=== PATIENT | female | born 1945 | race Caucasian/White ===

== ENCOUNTER → 2017-12-15 15:31 | Outpatient (CLI) | payer MEDICARE, SELFPAY ==
--- NOTE | 2017-12-15 | DI.RAD.S_ITS ---
PROCEDURE: XR CHEST 2V INDICATIONS: ACUTE BRONCHITIS TECHNIQUE: 2 views of the chest were acquired. COMPARISON: None. FINDINGS: Surgical changes and devices: None. Lungs and pleura: No pleural effusions or pneumothorax. Lungs are abnormal, with asymmetric subtle generalized increased radiodensity over the left lung best seen at the left upper lobe. Mediastinum: Mediastinal contours are normal. Heart size is normal. Bones and chest wall: No suspicious bony abnormalities. Soft tissues appear unremarkable. IMPRESSION: Suspect left lung pneumonia, especially left upper lobe area. Followup PA and lateral chest plain film should be obtained in approximately 2 weeks to confirm resolution of this abnormality. Dictated by: John Ravi M.D. on 12/15/2017 at 16:15 Approved by: John Ravi M.D. on 12/15/2017 at 16:16
== END ==
PROVIDERS: PCP Physician Assistant; Visit Provider Student in an Organized Health Care Education/Training Program
DX: J20.9 Acute bronchitis, unspecified (principal)
CPT/HCPCS: 71046

== ENCOUNTER → 2017-12-29 14:04 | Outpatient (CLI) | payer MEDICARE, SELFPAY ==
--- NOTE | 2017-12-29 | DI.RAD.S_ITS ---
PROCEDURE: XR CHEST 2V INDICATIONS: Pneumonia, unspecified organism TECHNIQUE: 2 views of the chest were acquired. COMPARISON: [facility], CR, XR CHEST 2V, 12/15/2017, 15:36. FINDINGS: Surgical changes and devices: None. Lungs and pleura: No pleural effusions or pneumothorax. Lungs are clear. Mediastinum: Mediastinal contours are normal. Heart size is normal. Bones and chest wall: No suspicious bony abnormalities. Soft tissues appear unremarkable. IMPRESSION: No acute disease Dictated by: Doug Gonsalez M.D. on 12/29/2017 at 15:52 Approved by: Doug Gonsalez M.D. on 12/29/2017 at 16:01
== END ==
PROVIDERS: PCP Physician Assistant; Visit Provider Student in an Organized Health Care Education/Training Program
DX: J18.9 Pneumonia, unspecified organism (principal)
CPT/HCPCS: 71046

== ENCOUNTER → 2018-07-24 11:37 | Outpatient (CLI) | payer MEDICARE, SELFPAY ==
--- NOTE | 2018-07-24 | DI.CT.S_ITS ---
PROCEDURE: CT SOFT TISSUE NECK WO/W CON INDICATIONS: BILATERAL VOCAL CORD PARALYSIS TECHNIQUE: Before and after the administration of intravenous contrast, 2.0 mm axial sections acquired through the neck and down to the roque. Additional 2.0 mm coronal and sagittal reformats were generated of the contrast enhanced images. For radiation dose reduction, the following was used: automated exposure control. COMPARISON: [facility], CR, XR CHEST 2V, 12/15/2017, 15:36. [facility], CR, XR CHEST 2V, 12/29/2017, 14:06. FINDINGS: Image quality: Excellent. Lung parenchyma: There is a mass lesion at the anterior left upper lobe, measuring up to 2.4 cm AP and 3.3 cm transverse with a craniocaudad dimension of 5.7 cm. This mass extends to abut and likely invade the adjacent left mediastinum, and there is mild increased radiodensity tracking towards the midline through the AP window best seen on coronal imaging (series 8 image 54). There is a small amount pleural thickening at the posterior border of the left upper hemithorax, with a re\re internal radiodensity about 26 Hounsfield units. Thyroid: Right thyroid lobe appears surgically absent. There is a mass within the posterior half of the left thyroid lobe measuring 1.7 cm transverse and 2.1 cm AP. Lymph nodes: No enlarged lymph nodes seen throughout the neck. Vessels: Visualized vasculature appears patent. Neck spaces: The oropharynx, nasopharynx, and pharynx demonstrate no mucosal lesions. The vocal cords, false vocal cords, pyriform sinuses, epiglottis, vallecula, and tongue base all appear normal. Extramucosal spaces appear unremarkable. Glands: The parotid and submandibular glands appear normal. Miscellaneous: Superficial soft tissues appear normal. Bones: No suspicious bony lesions. Visualized sinuses and mastoids appear unremarkable. IMPRESSION: 1. 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 As noted above this mass extends to abut and likely invade the left mediastinum and may track across the midline given the presence of bands of elevated radiodensity contiguously extending from the inferior margin of the mass at the left mediastinal margin within the middle mediastinal fat. 2. Surgical clips indicate likelihood of prior right thyroidectomy. 3. Angular mass lesion at the posterior left thyroid lobe measuring up to 1.7 x 2.1 cm, heterogeneously enhancing. Thyroid ultrasound is recommended to further assess this abnormality. Biopsy likely is necessary targeted to that area. 4. Within the glottic region of the upper airway a discrete mucosal mass lesion is not found. Dictated by: John Ravi M.D. on 07/24/2018 at 14:50 Approved by: John Ravi M.D. on 07/24/2018 at 15:01
== END ==
PROVIDERS: Family Provider Internal Medicine Cardiovascular Disease; PCP Student in an Organized Health Care Education/Training Program; Visit Provider Otolaryngology
DX: J38.02 Paralysis of vocal cords and larynx, bilateral (principal); R91.8 Other nonspecific abnormal finding of lung field; E07.9 Disorder of thyroid, unspecified
CPT/HCPCS: 70492; Q9967

== ENCOUNTER → 2018-08-03 15:08 | Outpatient (CLI) | payer MEDICARE, SELFPAY ==
--- NOTE | 2018-08-03 | DI.US.S_ITS ---
PROCEDURE: US THYROID INDICATIONS: OTHER SPECIFIED DISORDERS OF THYROID TECHNIQUE: Real-time scanning was performed of the thyroid gland, with image documentation. COMPARISON: None. FINDINGS: Right: Thyroid lobe is surgically absent Left: Thyroid lobe measures 4.4 x 1.3 x 1.6 cm, and contains 3 nodules Nodule number: 1 Location: Left lower pole Size: 1.8 x 2.0 x 2.0 cm. Composition: Predominantly solid Echogenicity: Hypoechoic Shape: wider than tall. Margins: Smooth Echogenic foci: Punctate Total points: 7 ACR TI-RADS category: Highly suspicious Nodule number: 2 Location: Left upper pole Size: 1.2 x 0.7 x 0.9 cm. Composition: Predominantly solid Echogenicity: Isoechoic Shape: wider than tall. Margins: Smooth Echogenic foci: None Total points: 3 ACR TI-RADS category: Mildly suspicious Nodule number: 3 Location: Medial left lower pole Size: 1.6 x 0.6 x 0.9 cm. Composition: Solid Echogenicity: Isoechoic Shape: Wider than tall Margins: Smooth Echogenic foci: None Total points: 3 ACR TI-RADS category: Mildly suspicious IMPRESSION: 1. Remote right hemithyroidectomy 2. There are 3 nodules in the left lobe of the thyroid. 3. Nodule 1, in the left lower pole, measuring 2.0 cm in maximum diameter, according to B TI-RADS criteria, should be sampled if it hasn't been sampled and proven to be benign. ACR TI-RADS definitions and recommendations: TI-RADS 1 (benign): 0 points. FNA not needed. TI-RADS 2 (not suspicious): 2 points. FNA not needed. TI-RADS 3 (mildly suspicious): 3 points. * FNA if 2.5 cm or larger, follow up if 1.5 cm or larger (at 1, 3, and 5 years). TI-RADS 4 (moderately suspicious): 4-6 points. * FNA if 1.5 cm or larger, follow up if 1 cm or larger (at 1, 2, 3, and 5 years). TI-RADS 5 (highly suspicious): 7 points or more. * FNA if 1 cm or larger, follow up if 0.5 cm or larger (every year for 5 years). Dictated by: Jamie Thomas M.D. on 08/03/2018 at 17:10 Approved by: Jamie Thomas M.D. on 08/03/2018 at 17:17
== END ==
PROVIDERS: Family Provider Internal Medicine Cardiovascular Disease; PCP Student in an Organized Health Care Education/Training Program; Visit Provider Student in an Organized Health Care Education/Training Program
DX: E04.2 Nontoxic multinodular goiter (principal)
CPT/HCPCS: 76536

== ENCOUNTER → 2019-01-09 14:55 | Outpatient (CLI) | payer MEDICARE, SELFPAY ==
--- NOTE | 2019-01-09 | DI.ECHO.S_ITS ---
[facility]---------+ [facility] +---------+ : : [address] : : : : [id number] : : : : Phone: [phone]+ Echocardiogram Report + + :Name: FRANKEI GUZMAN Study Date: 01/09/2019 Height: 67 in : :[facility] Exam Location: [facility] Weight: 242 lb: : Gender: Female BSA: 2.2 m2 : :: 1945 Age: 73 yrs : :Reason For Study: Atrial fibrillation : :Ordering Physician: Sarika Fisher : :Sami Performed By: Erin Page : + + Interpretation Summary 1) Mildly enlarged left ventricle with normal function (EF 55-60%). 2) Mildly enlarged right ventricle with low normal function. 3) Both atria are severely dilated. 4) No significant valvular abnormalities. 5) Small to moderate pericardial effusion, located mostly anteriorly. No echo/doppler evidence of tamponade. 6) Compared to the Echo done 07/13/2018, LVEF has improved from 45-50% to 55-60% on this study and pericardial effusion is worse on this study. Procedure: A two-dimensional transthoracic echocardiogram with color flow and Doppler was performed. The study quality was technically adequate. Comparison is made with the echocardiogram of 08/03/2018. The patient was in atrial fibrillation with heart rates between 77-106 bpm during the exam. Left Ventricle: The left ventricle is mildly dilated. There is normal left ventricular wall thickness. The ejection fraction is estimated to be 55-60%. Left ventricular systolic function is normal. There are no obvious focal wall motion abnormalities noted but poor endocardial definition reduces the sensitivity for the detection of such. Diastolic function could not be accurately assessed due to atrial fibrillation. Right Ventricle: The right ventricle is mildly dilated. Right ventricular systolic function is at the lower limits of normal. Atria: Both atria are severely dilated. There is no Doppler evidence for an interatrial shunt. Mitral Valve: The mitral valve leaflets appear mildly thickened, but open well. There is trace mitral regurgitation. Aortic Valve: The aortic valve is trileaflet. The aortic valve opens well. The aortic valve is slightly calcified. There is no aortic valve stenosis. No aortic regurgitation is present. Tricuspid Valve: The tricuspid valve is normal in structure and function. There is mild tricuspid regurgitation. The right ventricular systolic pressure is estimated to be at least 32 mmHg based on an estimated right atrial pressure of 3 mm Hg. Pulmonic Valve: The pulmonic valve is not well visualized. Great Vessels: The aortic root is normal size. The ascending aorta is mildly enlarged. The pulmonary artery is not well visualized, but is probably normal size. The IVC is of normal diameter and collapses greater than 50% with a sniff. This suggests a low right atrial pressure of 3 mm Hg. Pericardium/ Pleura There are no echocardiographic indications of cardiac tamponade. Small to moderate pericardial effusion, located mostly anteriorly. There is no pleural effusion. MMode/2D Measurements & Calculations LVIDd: 5.5 cm LVOT diam: 2.2 cm LVIDs: 4.2 cm Ao root diam: 3.5 cm FS: 23.2 % asc Aorta Diam: 3.6 cm IVSd: 0.52 cm LVPWd: 0.82 cm LV rucker. diameter/BSA (cm/m^2): 2.5 LV sys. diameter/BSA (cm/m^2): 1.9 LA A2 area: 32.6 cm2 RA long axis: 5.9 cm LA A4 area: 35.9 cm2 RA area: 29.1 cm2 LA length (vol): 6.4 cm RA vol: 122.4 ml LA vol: 155.2 ml RA : 55.8 ml/m2 LA vol index: 70.8 ml/m2 IVC diam: 2.0 cm RVD1 (basal): 4.7 cm TAPSE: 1.7 cm Doppler Measurements & Calculations Ao V2 max: 133.3 cm/sec LVOT Max Epi: 80.4 cm/sec Ao V2 mean: 85.9 cm/sec LV V1 max P.6 mmHg Ao max P.1 mmHg LV V1 VTI: 13.5 cm Ao mean P.4 mmHg CHRISTOPHER(I,D): 2.6 cm2 Ao V2 VTI: 19.9 cm CHRISTOPHER(V,D): 2.4 cm2 sev ratio: 0.68 CHRISTOPHER indexed to BSA (cm^2/m^2): 1.2 MV E max epi: 89.1 cm/sec TR max epi: 269.3 cm/sec MV P1/2t: 49.4 msec TR max P.0 mmHg PA V2 max: 64.8 cm/sec PA V2 mean: 46.6 cm/sec PA mean P.96 mmHg PA Accel Time: 0.10 sec MV P1/2t max epi: 89.3 cm/sec SV(LVOT): 52.7 ml MVA(P1/2t): 4.5 cm2 Reading Physician:05:41 PM
== END ==
PROVIDERS: Family Provider Internal Medicine Cardiovascular Disease; PCP Student in an Organized Health Care Education/Training Program; Visit Provider Internal Medicine Cardiovascular Disease
DX: I07.1 Rheumatic tricuspid insufficiency (principal); I48.19 Other persistent atrial fibrillation; I31.3 Pericardial effusion (noninflammatory); Z86.79 Personal history of other diseases of the circulatory system
CPT/HCPCS: 93306

== ENCOUNTER 2019-02-23 05:30 | Emergency (ER) | payer MEDICARE, SELFPAY ==
[2019-02-23] VITALS (15 sets, daily range): BP systolic 101–126; BP diastolic 67–94; PULSE 92–107; RESP 15–20; TEMP 36.7–36.9; O2SAT 95–100; BMI 34.3
--- NOTE | 2019-02-23 05:32 | DI.RAD.S_ITS ---
PROCEDURE: XR KNEE LT 3V INDICATIONS: Fall left knee pain TECHNIQUE: 3 views of the knee were acquired. COMPARISON: None. FINDINGS: Bones: Comminuted fracture of the distal femur noted. Fracture lucencies extend in the patellofemoral compartment of the knee joint. Soft tissues: No joint effusion. No suspicious soft tissue calcifications. IMPRESSION: Comminuted, displaced, intra-articular distal left femur fracture. Dictated by: Kendy Clemens MD, PhD on 02/23/2019 at 8:31 Approved by: Kendy Clemens MD, PhD on 02/23/2019 at 8:32
--- NOTE | 2019-02-23 05:37 | ED.GENADULT ---
HPI - General Adult <Herman Mckinney DO - Last Filed: 02/23/19 18:54> General Chief complaint: Fall Stated complaint: fall, left knee pain Time Seen by Provider: 02/23/19 05:32 Source: patient and EMS Mode of arrival: EMS Limitations: no limitations History of Present Illness HPI narrative: Patient is a 73-year-old female. Has a history of breast cancer. Is not currently undergoing chemotherapy. Also has a history of persistent AFib. Is on Eliquis. Here for evaluation of injuries that she sustained when she fell at home. States she was getting out of bed this morning when she got her leg caught around her clothes. Fell forward. Did hit her head. No loss of consciousness. Since then has had severe left knee pain. Has been nonambulatory since then. EMS was called. She did receive 50 micro g of fentanyl prior to arrival. Related Data Allergies Allergy/AdvReac Type Severity Reaction Status Date / Time No Known Drug Allergies Allergy Verified 02/23/19 06:56 Review of Systems <DO Gabriel Smart Last Filed: 02/23/19 18:54> Constitutional Constitutional: Denies fever(s) and Denies headache(s) ENT Ears, Nose, Mouth, and Throat: Denies headache(s) and Denies disequilibrium Cardiovascular Cardiovascular: Denies chest pain and Denies dyspnea Respiratory Respiratory: Denies dyspnea Gastrointestinal Gastrointestinal: Denies abdominal pain and Denies vomiting Musculoskeletal Musculoskeletal: Denies tingling Comments: Left knee pain Integumentary/Breasts Comments: Abrasion left side of face Neurologic Neurologic: Denies behavioral changes, Denies headache(s), Denies tingling, Denies paresthesias and Denies disequilibrium Psychiatric Psychiatric: Denies behavioral changes Hematologic/Lymphatic Comments: On Eliquis Patient History <DO Gabriel Smart Last Filed: 02/23/19 18:54> Medical History Atrial fibrillation (Acute) Fibromyalgia (Acute) Hypothyroid (Acute) Lung cancer (Acute) Social History Smoking Status: Former smoker Exam <DO Gabriel Smart Last Filed: 02/23/19 18:54> Initial Vital Signs Initial Vital Signs: Vital Signs Temperature 98.4 F 02/23/19 05:43 Pulse Rate 93 H 02/23/19 05:43 Respiratory Rate 16 02/23/19 05:43 Blood Pressure 120/67 02/23/19 05:43 Pulse Oximetry 98 02/23/19 05:43 Const General: cooperative Orientation: alert, awake and oriented x3 HENMT Head: normal to inspection and normocephalic Resp Effort & Inspection: normal respiratory effort Auscultation: clear to auscultation bilaterally Cardio Rate: regular rate Pulses: radial pulses present Back/Spine/Pelvis Cervical Spine: No collar present and No cervical spinal tenderness Skin Other: Patient with a 3 cm round area abrasion to the left cheek. No active bleeding Neuro General: alert, awake and oriented x3 Cognition: normal cognition Speech: speech normal Extrem Other: Patient with tenderness to palpation throughout the left knee. Palpable deformity felt around the knee. Psych Appearance: grossly normal and well kempt <Lakesha Donato DO - Last Filed: 02/23/19 18:16> Initial Vital Signs Initial Vital Signs: Vital Signs Temperature 98.4 F 02/23/19 05:43 Pulse Rate 93 H 02/23/19 05:43 Respiratory Rate 16 02/23/19 05:43 Blood Pressure 120/67 02/23/19 05:43 Pulse Oximetry 98 02/23/19 05:43 Scores <Herman Mckinney DO - Last Filed: 02/23/19 18:54> GCS Halma coma scale eye opening: Spontaneous Osei coma scale verbal response: Orientated Osei coma scale motor response: Obey commands Osei coma scale total score: 15 Nexus Score for C-Spine Focal Neurologic deficit present: No Midline spinal tenderness present: No Altered level of conciousness present: No Intoxication present: No Distracting Injury Present: No Nexus Criteria for C-spine: 0 Course <Herman Mckinney DO - Last Filed: 02/23/19 18:54> Orders Ordered: Discontinued Medications Hydromorphone HCl (Dilaudid) 1 mg IV NOW ONE Stop: 02/23/19 05:56 Last Admin: 02/23/19 06:06 Dose: 1 mg Documented by: CLAU Hydromorphone HCl (Dilaudid) 1 mg IV NOW ONE Stop: 02/23/19 07:45 Last Admin: 02/23/19 07:50 Dose: 1 mg Documented by: SHANKAR Hydromorphone HCl (Dilaudid) 0.5 mg IV NOW ONE Stop: 02/23/19 08:42 Last Admin: 02/23/19 09:25 Dose: 0.5 mg Documented by: SHANKAR Hydromorphone HCl (Dilaudid) 1 mg IV Q3H [facility] Last Admin: 02/23/19 17:40 Dose: 1 mg Documented by: Admin: 02/23/19 15:19 Dose: 1 mg Documented by: Admin: 02/23/19 12:17 Dose: 1 mg Documented by: SHANKAR Sodium Chloride (Normal Saline 0.9%) 1,000 mls @ 150 mls/hr IV CONT MARIANN Last Infusion: 02/23/19 17:45 Dose: 0 mls/hr Documented by: Admin: 02/23/19 13:32 Dose: 150 mls/hr Documented by: SHANKAR Ondansetron HCl (Zofran) 4 mg IV NOW ONE Stop: 02/23/19 06:31 Last Admin: 02/23/19 06:49 Dose: 4 mg Documented by: GEORGES Ondansetron HCl (Zofran) 4 mg IV NOW ONE Stop: 02/23/19 08:12 Last Admin: 02/23/19 08:14 Dose: 4 mg Documented by: SHANKAR Vital Signs Vital signs: Vital Signs - 8 hr 02/23/19 10:55 02/23/19 11:30 02/23/19 12:25 Temperature Pulse Rate 92 H 99 H 97 H Respiratory Rate 19 16 20 Blood Pressure [Left Arm] 115/79 101/83 106/79 Pulse Oximetry 99 98 97 02/23/19 14:33 02/23/19 15:00 02/23/19 15:55 Temperature Pulse Rate 97 H 101 H 101 H Respiratory Rate 20 16 18 Blood Pressure [Left Arm] 114/86 112/82 122/94 H Pulse Oximetry 100 99 99 02/23/19 16:37 02/23/19 17:05 02/23/19 17:18 Temperature 98.1 F Pulse Rate 100 H 99 H Respiratory Rate 18 16 Blood Pressure [Left Arm] 112/88 102/82 Pulse Oximetry 99 98 02/23/19 17:30 Temperature Pulse Rate 100 H Respiratory Rate 18 Blood Pressure [Left Arm] 112/88 Pulse Oximetry 97 <Lakesha Donato, DO - Last Filed: 02/23/19 18:16> Orders Ordered: Discontinued Medications Hydromorphone HCl (Dilaudid) 1 mg IV NOW ONE Stop: 02/23/19 05:56 Last Admin: 02/23/19 06:06 Dose: 1 mg Documented by: CLAU Hydromorphone HCl (Dilaudid) 1 mg IV NOW ONE Stop: 02/23/19 07:45 Last Admin: 02/23/19 07:50 Dose: 1 mg Documented by: SHANKAR Hydromorphone HCl (Dilaudid) 0.5 mg IV NOW ONE Stop: 02/23/19 08:42 Last Admin: 02/23/19 09:25 Dose: 0.5 mg Documented by: SHANKAR Hydromorphone HCl (Dilaudid) 1 mg IV Q3H [facility] Last Admin: 02/23/19 17:40 Dose: 1 mg Documented by: Admin: 02/23/19 15:19 Dose: 1 mg Documented by: Admin: 02/23/19 12:17 Dose: 1 mg Documented by: SHANKAR Sodium Chloride (Normal Saline 0.9%) 1,000 mls @ 150 mls/hr IV CONT [facility] Last Infusion: 02/23/19 17:45 Dose: 0 mls/hr Documented by: Admin: 02/23/19 13:32 Dose: 150 mls/hr Documented by: SHANKAR Ondansetron HCl (Zofran) 4 mg IV NOW ONE Stop: 02/23/19 06:31 Last Admin: 02/23/19 06:49 Dose: 4 mg Documented by: GEORGES Ondansetron HCl (Zofran) 4 mg IV NOW ONE Stop: 02/23/19 08:12 Last Admin: 02/23/19 08:14 Dose: 4 mg Documented by: SHANKAR Vital Signs Vital signs: Vital Signs - 8 hr 02/23/19 10:55 02/23/19 11:30 02/23/19 12:25 Temperature Pulse Rate 92 H 99 H 97 H Respiratory Rate 19 16 20 Blood Pressure [Left Arm] 115/79 101/83 106/79 Pulse Oximetry 99 98 97 02/23/19 14:33 02/23/19 15:00 02/23/19 15:55 Temperature Pulse Rate 97 H 101 H 101 H Respiratory Rate 20 16 18 Blood Pressure [Left Arm] 114/86 112/82 122/94 H Pulse Oximetry 100 99 99 02/23/19 16:37 02/23/19 17:05 02/23/19 17:18 Temperature 98.1 F Pulse Rate 100 H 99 H Respiratory Rate 18 16 Blood Pressure [Left Arm] 112/88 102/82 Pulse Oximetry 99 98 02/23/19 17:30 Temperature Pulse Rate 100 H Respiratory Rate 18 Blood Pressure [Left Arm] 112/88 Pulse Oximetry 97 Medical Decision Making <Herman Mckinney, DO - Last Filed: 02/23/19 18:54> Medical Records Medical records reviewed: Yes I reviewed the patient's medical records. Lab Data Lab results reviewed: Yes I reviewed the patient's lab results. Result diagrams: 02/23/19 06:03 02/23/19 06:03 Labs: Lab Results 02/23/19 02/23/19 02/23/19 Range/Units 06:03 06:03 06:40 WBC 8.5 (4.5-11.0) X10^3/uL RBC 3.30 L (4.0-5.2) X10^6/uL Hgb 11.3 L (12.0-16.0) g/dL Hct 31.7 L (36-46) % MCV 96.1 (80-100) fL MCH 34.3 H (26-34) PG MCHC 35.7 (30-36) % RDW 12.6 (11.6-14.8) % Plt Count 237 (150-400) X10^3/uL Neut % (Auto) 73.4 (50-75) % Lymph % (Auto) 17.8 L (25-40) % Davidson % (Auto) 7.7 (3-14) % Eos % (Auto) 0.3 L (2-4) % Baso % (Auto) 0.8 (0-2) % Neut # (Auto) 6300 (0962-5504) /uL Lymph # (Auto) 1500 (0649-8800) /uL Davidson # (Auto) 700 (0-900) /uL Eos # (Auto) 0 (0-450) /uL Baso # (Auto) 100 (0-100) /uL Sodium 137 (137-145) mmol/L Potassium 4.9 (3.4-5.1) mmol/L Chloride 101 (98-107) mmol/L Carbon Dioxide 25 (22-32) mmol/L BUN 43 H (7-17) mg/dL Creatinine 5.50 H (0.52-1.04) mg/dL Estimated GFR 7.6 L (>60) mL/min BUN/Creatinine Ratio 7.8 (6-22) Glucose 110 (80-110) mg/dL Calcium 9.4 (8.4-10.2) mg/dL Total Creatine Kinase (30-135) U/L Blood Type O Positive Antibody Screen Negative 02/23/19 Range/Units 06:40 WBC (4.5-11.0) X10^3/uL RBC (4.0-5.2) X10^6/uL Hgb (12.0-16.0) g/dL Hct (36-46) % MCV (80-100) fL MCH (26-34) PG MCHC (30-36) % RDW (11.6-14.8) % Plt Count (150-400) X10^3/uL Neut % (Auto) (50-75) % Lymph % (Auto) (25-40) % Davidson % (Auto) (3-14) % Eos % (Auto) (2-4) % Baso % (Auto) (0-2) % Neut # (Auto) (7072-6238) /uL Lymph # (Auto) (4220-6263) /uL Davidson # (Auto) (0-900) /uL Eos # (Auto) (0-450) /uL Baso # (Auto) (0-100) /uL Sodium (137-145) mmol/L Potassium (3.4-5.1) mmol/L Chloride (98-107) mmol/L Carbon Dioxide (22-32) mmol/L BUN (7-17) mg/dL Creatinine (0.52-1.04) mg/dL Estimated GFR (>60) mL/min BUN/Creatinine Ratio (6-22) Glucose (80-110) mg/dL Calcium (8.4-10.2) mg/dL Total Creatine Kinase 29 L (30-135) U/L Blood Type Antibody Screen Imaging Data CT scan - head: Radiologist's impression: [address] [address] [address] Scan Report Signed Patient: Sarah Montes KMR#: [id number] : 1946Acct:[id number] Age/Sex: 73 / FDate of Service: 02/23/19 Loc: ED Accession Number: [id number] Procedure: CT head/brain wo con Ordering Provider: Herman Mckinney D.O. PROCEDURE: CT HEAD/BRAIN WO CON INDICATIONS: Fell hit head on blood thinners TECHNIQUE: Noncontrast 4.5 mm thick angled axial sections acquired from the foramen magnum to the vertex, with coronal and sagittal reformats. For radiation dose reduction, the following was used: automated exposure control, adjustment of mA and/or kV according to patient size. COMPARISON: None. FINDINGS: Image quality: Excellent. CSF spaces: Basal cisterns are patent. No extra-axial fluid collections. The ventricles are symmetric in size and shape. Brain: No intracranial bleeds or masses. There is cerebral volume loss for age, with resultant ventricular and sulcal prominence. There are periventricular and deep white matter chronic small vessel ischemic changes. Small, chronic left thalamic lacunar infarct. There is intracranial internal carotid artery atherosclerosis. Skull and face: Calvarium and visualized facial bones appear intact, without suspicious lesions. Sinuses: Visualized sinuses and mastoids are clear. IMPRESSION: No acute intracranial disease process. Dictated by: Kendy Clemens MD, PhD on 02/23/2019 at 7:11 Approved by: Kendy Clemens MD, PhD on 02/23/2019 at 7:12 X-ray knee: Attestation: I personally reviewed and interpreted this imaging study as follows: My impression: Comminuted distal femur fracture Femur x-ray: Attestation: I personally reviewed and interpreted this imaging study as follows: My impression: Comminuted distal femur fracture X-ray tib-fib: Attestation: I personally reviewed and interpreted this imaging study as follows: My impression: No tibia/fibula fracture MDM Narrative Medical decision making narrative: Patient is neurovascular intact. Head CT is unremarkable. The abrasion on the left side of the face needs no intervention. I feel that I could clear her neck by nexus criteria. Does appear to be a mechanical fall. She does have an elevation in creatinine. Unsure the exact etiology of this. Her last labs for her were over 2 years ago. Does have a comminuted distal femur fracture. I did discuss the case with Dr. Robles who stated that given the type of fracture that it is in the comminution that she would be better off add a facility with specialist and potential distal femur replacement. I did discuss the transfer with the patient. Patient is in a palliative care situation. She is not undergoing any treatment for her lung cancer. They have not been evaluated by hospice. They still have plans on follow-up with oncology. 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 We did discuss her fracture. I did inform them that most likely without some sort of surgical intervention she would be nonambulatory. They are interested in pursuing potential surgical fixation if this is possible. Her last dose of Eliquis was last evening. I did discuss the case with Dr. Tubbs with trauma surgery at [facility] who stated that he would be happy to accept the patient if Orthopedics waited on the situation. Care was turned over to Dr. Donato to follow-up the transfer. <Lakesha Donato, - Last Filed: 02/23/19 18:16> Lab Data Lab results reviewed: Yes I reviewed the patient's lab results. Labs: Lab Results 02/23/19 02/23/19 02/23/19 Range/Units 06:03 06:03 06:40 WBC 8.5 (4.5-11.0) X10^3/uL RBC 3.30 L (4.0-5.2) X10^6/uL Hgb 11.3 L (12.0-16.0) g/dL Hct 31.7 L (36-46) % MCV 96.1 (80-100) fL MCH 34.3 H (26-34) PG MCHC 35.7 (30-36) % RDW 12.6 (11.6-14.8) % Plt Count 237 (150-400) X10^3/uL Neut % (Auto) 73.4 (50-75) % Lymph % (Auto) 17.8 L (25-40) % Davidson % (Auto) 7.7 (3-14) % Eos % (Auto) 0.3 L (2-4) % Baso % (Auto) 0.8 (0-2) % Neut # (Auto) 6300 (4373-8584) /uL Lymph # (Auto) 1500 (7762-8615) /uL Davidson # (Auto) 700 (0-900) /uL Eos # (Auto) 0 (0-450) /uL Baso # (Auto) 100 (0-100) /uL Sodium 137 (137-145) mmol/L Potassium 4.9 (3.4-5.1) mmol/L Chloride 101 (98-107) mmol/L Carbon Dioxide 25 (22-32) mmol/L BUN 43 H (7-17) mg/dL Creatinine 5.50 H (0.52-1.04) mg/dL Estimated GFR 7.6 L (>60) mL/min BUN/Creatinine Ratio 7.8 (6-22) Glucose 110 (80-110) mg/dL Calcium 9.4 (8.4-10.2) mg/dL Total Creatine Kinase (30-135) U/L Blood Type O Positive Antibody Screen Negative 02/23/19 Range/Units 06:40 WBC (4.5-11.0) X10^3/uL RBC (4.0-5.2) X10^6/uL Hgb (12.0-16.0) g/dL Hct (36-46) % MCV (80-100) fL MCH (26-34) PG MCHC (30-36) % RDW (11.6-14.8) % Plt Count (150-400) X10^3/uL Neut % (Auto) (50-75) % Lymph % (Auto) (25-40) % Davidson % (Auto) (3-14) % Eos % (Auto) (2-4) % Baso % (Auto) (0-2) % Neut # (Auto) (9579-3244) /uL Lymph # (Auto) (6294-8436) /uL Davidson # (Auto) (0-900) /uL Eos # (Auto) (0-450) /uL Baso # (Auto) (0-100) /uL Sodium (137-145) mmol/L Potassium (3.4-5.1) mmol/L Chloride (98-107) mmol/L Carbon Dioxide (22-32) mmol/L BUN (7-17) mg/dL Creatinine (0.52-1.04) mg/dL Estimated GFR (>60) mL/min BUN/Creatinine Ratio (6-22) Glucose (80-110) mg/dL Calcium (8.4-10.2) mg/dL Total Creatine Kinase 29 L (30-135) U/L Blood Type Antibody Screen Imaging Data left Femur XR: Radiologist's impression: PROCEDURE: XR FEMUR LT MIN 2V INDICATIONS: left femur pain post fall TECHNIQUE: 2 views of the femur were acquired. COMPARISON: None. FINDINGS: Bones: Comminuted, displaced fracture of the distal left femur. Soft tissues: No suspicious soft tissue calcifications or masses. IMPRESSION: Comminuted nondisplaced distal left femur fracture. Dictated by: Kendy Clemens MD, PhD on 02/23/2019 at 8:32 left tib fb: Radiologist's impression: PROCEDURE: XR TIBIA FIBULA RT 2V INDICATIONS: left leg pain post fall TECHNIQUE: 2 views of the tibia and fibula were acquired. COMPARISON: None. FINDINGS: Bones: No tibia or fibula fractures or dislocations. No suspicious bony lesions. Soft tissues: No suspicious soft tissue calcifications or masses. IMPRESSION: No tibia or fibula fracture. Dictated by: Kendy Clemens MD, PhD on 02/23/2019 at 8:32 CT Left femur: Radiologist's impression: PROCEDURE: CT LE LT W CON INDICATIONS: distal femur fx, with known metastasis to pelvis TECHNIQUE: Noncontrast 3 mm axial sections acquired of the left thigh, with coronal and sagittal reformats. COMPARISON: [facility], CR, XR KNEE LT 3V, 02/23/2019, 5:43. [facility], CR, XR FEMUR LT MIN 2V, 02/23/2019, 5:53. [facility], CR, XR TIBIA FIBULA LT 2V, 02/23/2019, 5:53. FINDINGS: Image quality: Diagnostic. Bones: There is a transverse fracture that is mildly comminuted evident involving the distal left femoral metaphysis that propagates into the joint space. Mild impaction of the fracture fragments is present with corresponding medial displacement of the distal fracture fragments by approximately 9 mm. There is posterior displacement of the distal fracture fragments by at least 2.3 cm. There is also lateral rotation of the distal fracture fragment and of the left lower leg with respect to the left thigh. No dislocation is identified. No definitive suspicious osseous lesions are evident. There are severe degenerative changes of the knee joint. Mild to moderate degenerative changes of the left hip joint are present. The included osseous structures of the imaged left hemipelvis are grossly unremarkable. Soft tissues: There is a prominent knee joint effusion. A prominent soft tissue edema is evident about the knee and the fracture site. No significant muscle atrophy is evident. No drainable fluid collections or soft tissue masses are appreciated. The included imaged soft tissues of the pelvis demonstrate small sigmoid diverticuli. No inguinal lymphadenopathy or inguinal hernias are evident on the left. IMPRESSION: Comminuted and moderately displaced intra-articular distal femoral metaphyseal fracture. No definitive evidence of a pathologic fracture is appreciated. No suspicious osseous lesions are identified. Dictated by: Leif Hong M.D. on 02/23/2019 at 9:52 MDM Narrative Medical decision making narrative: Patient signed out to me by Dr. Mckinney seen evaluated patient myself. She is awake alert oriented complaints of some left knee pain. I discussed case with Orthopedics [facility] , question if break is from bony metastasis versus mechanical fall. Recommends CT of the entire femur to determine cause. If causes from bony metastasis she will need to be transferred to the [facility] rather than to [facility]. I've discussed this with patient and her . CT has been ordered. CT does not show any definitive bony metastasis however [facility] recommends talking to [facility] orthopedic oncology. And likely transfer to the [facility]. IV fluids were started for acute renal failure. She is getting delighted for pain management which does seem to help. Vitals have otherwise been stable while in the emergency department. 1pm Dr Olea, orthopedic at [facility] has reviewed CT himself. Does not see any definitive meds but difficult to say agrees that patient needs to be transferred where ortho oncology is available. He is leaving town recommend that he talk to his partner Dr. Jarrell 2:40pm Dr.King Cabral at [facility] updated request admit to medicine 3pm Dr. Harry hospitalist at [facility] accepts 3:15pm Dr. Jarrell [facility] request medicine, updated patient's symptoms test results accepts patient, unfortunately bed not available until tomorrow. Patient going to [facility] accepting Dr is Dr. Harry <Lakesha Donato, - Last Filed: 02/23/19 18:16> Critical Care Time Critical Care Time: Yes Total Critical Care Time: 30 Attestation: The patient satisfied the definition of criticality in that they had a high probability of imminent deterioration of their conditon. Critical care time includes time spent at the bedside, plus where appropriate: gathering information from family, EMS, old records, caregivers; interpretation of test results; and time spent discussing patient with other physicians Discharge Plan Departure Patient Disposition: [facility] Clinical Impression: Acute kidney injury Fracture of distal end of left femur Qualifiers: Encounter type: initial encounter Fracture type: closed Fracture morphology: unspecified fracture morphology Qualified Code(s): S72.402A - Unspecified fracture of lower end of left femur, initial encounter for closed fracture Contusion of face Qualifiers: Encounter type: initial encounter Qualified Code(s): S00.83XA - Contusion of other part of head, initial encounter Discharge Date/Time: 02/23/19 18:13 Referrals: Julia Rosario PA-C [Primary Care Provider] -
--- NOTE | 2019-02-23 05:54 | DI.RAD.S_ITS ---
PROCEDURE: XR TIBIA FIBULA RT 2V INDICATIONS: left leg pain post fall TECHNIQUE: 2 views of the tibia and fibula were acquired. COMPARISON: None. FINDINGS: Bones: No tibia or fibula fractures or dislocations. No suspicious bony lesions. Soft tissues: No suspicious soft tissue calcifications or masses. IMPRESSION: No tibia or fibula fracture. Dictated by: Kendy Clemens MD, PhD on 02/23/2019 at 8:32 Approved by: Kendy Clemens MD, PhD on 02/23/2019 at 8:32
--- NOTE | 2019-02-23 05:54 | DI.RAD.S_ITS ---
PROCEDURE: XR FEMUR LT MIN 2V INDICATIONS: left femur pain post fall TECHNIQUE: 2 views of the femur were acquired. COMPARISON: None. FINDINGS: Bones: Comminuted, displaced fracture of the distal left femur. Soft tissues: No suspicious soft tissue calcifications or masses. IMPRESSION: Comminuted nondisplaced distal left femur fracture. Dictated by: Kendy Clemens MD, PhD on 02/23/2019 at 8:32 Approved by: Kendy Clemens MD, PhD on 02/23/2019 at 8:33
[2019-02-23] MEDS: HYDROMORPHONE 1 MG INJ IV ×5 (06:06→17:40)
[2019-02-23 06:07] LABS: Add Manual Diff / Slide Review NO; Basophils Absolute Auto 100 /uL (0-100); Basophils Percent Auto 0.8 % (0-2); Eosinophils Absolute Auto 0 /uL (0-450); Eosinophils Percent Auto 0.3 % (2-4); Hematocrit 31.7 % (36-46); Hemoglobin 11.3 g/dL (12.0-16.0); Lymphocytes Absolute Auto 1500 /uL (1100-4500); Lymphocytes Percent Auto 17.8 % (25-40); Mean Corpuscular HGB Conc 35.7 % (30-36); Mean Corpuscular Hemoglobin 34.3 PG (26-34); Mean Corpuscular Volume 96.1 fL (80-100); Monocytes Absolute Auto 700 /uL (0-900); Monocytes Percent Auto 7.7 % (3-14); Neutrophils Absolute Auto 6300 /uL (1500-7000); Neutrophils Percent Auto 73.4 % (50-75); Platelet Count 237 X10^3/uL (150-400); Red Cell Distribution Width 12.6 % (11.6-14.8); White Blood Cell Count 8.5 X10^3/uL (4.5-11.0)
[2019-02-23 06:12] LABS: BUN Creatinine Ratio 7.8 (6-22); Blood Urea Nitrogen 43 mg/dL (7-17); Calcium 9.4 mg/dL (8.4-10.2); Carbon Dioxide 25 mmol/L (22-32); Chloride 101 mmol/L (98-107); Estimated Glomerular Filt Rate 7.6 mL/min (>60); Glucose 110 mg/dL (80-110); HEMOLYSIS 16 (0-50); Potassium 4.9 mmol/L (3.4-5.1); Sodium 137 mmol/L (137-145)
[2019-02-23] MEDS: ONDANSETRON 4 MG/2 ML INJ IV ×2 (06:49→08:14)
--- NOTE | 2019-02-23 08:41 | DI.CT.S_ITS ---
PROCEDURE: CT LE LT W CON INDICATIONS: distal femur fx, with known metastasis to pelvis TECHNIQUE: Noncontrast 3 mm axial sections acquired of the left thigh, with coronal and sagittal reformats. COMPARISON: [facility], CR, XR KNEE LT 3V, 02/23/2019, 5:43. [facility], CR, XR FEMUR LT MIN 2V, 02/23/2019, 5:53. [facility], CR, XR TIBIA FIBULA LT 2V, 02/23/2019, 5:53. FINDINGS: Image quality: Diagnostic. Bones: There is a transverse fracture that is mildly comminuted evident involving the distal left femoral metaphysis that propagates into the joint space. Mild impaction of the fracture fragments is present with corresponding medial displacement of the distal fracture fragments by approximately 9 mm. There is posterior displacement of the distal fracture fragments by at least 2.3 cm. There is also lateral rotation of the distal fracture fragment and of the left lower leg with respect to the left thigh. No dislocation is identified. No definitive suspicious osseous lesions are evident. There are severe degenerative changes of the knee joint. Mild to moderate degenerative changes of the left hip joint are present. The included osseous structures of the imaged left hemipelvis are grossly unremarkable. Soft tissues: There is a prominent knee joint effusion. A prominent soft tissue edema is evident about the knee and the fracture site. No significant muscle atrophy is evident. No drainable fluid collections or soft tissue masses are appreciated. The included imaged soft tissues of the pelvis demonstrate small sigmoid diverticuli. No inguinal lymphadenopathy or inguinal hernias are evident on the left. IMPRESSION: Comminuted and moderately displaced intra-articular distal femoral metaphyseal fracture. No definitive evidence of a pathologic fracture is appreciated. No suspicious osseous lesions are identified. Dictated by: Leif Hong M.D. on 02/23/2019 at 9:52 Approved by: Leif Hong M.D. on 02/23/2019 at 9:56
[2019-02-23] MEDS: HYDROMORPHONE 0.5 MG INJ IV (09:25)
[2019-02-23] MEDS: SODIUM CHLORIDE 0.9% 1,000 ML 150 ML IV (13:32)
[2019-02-23 15:59] LABS: Creatine Kinase 29 U/L (30-135)
--- NOTE | 2019-02-23 17:59 | PC.NURSE ---
pt did arrive to [facility] with contusion to her left side of her face. reports that she tripped on bed sheets when she got up this am.
== END 2019-02-23 18:13 | disposition short-term general hospital (02) ==
PROVIDERS: Emergency Medicine; Emergency Provider Emergency Medicine; Family Provider Internal Medicine Cardiovascular Disease; PCP Student in an Organized Health Care Education/Training Program
DX: N17.9 Acute kidney failure, unspecified (principal); S72.402A Unspecified fracture of lower end of left femur, initial encounter for closed fracture; S00.83XA Contusion of other part of head, initial encounter; R79.89 Other specified abnormal findings of blood chemistry; I48.91 Unspecified atrial fibrillation; Z79.01 Long term (current) use of anticoagulants
CPT/HCPCS: 36415; 51701; 70450; 73552; 73562; 73590; 73700; 80048; 82550; 85025; 86850; 86900; 86901; 96361; 96374; 96375; 96376; 99284; 99291; J1170; J2405

== ENCOUNTER → 2019-08-10 13:00 | Outpatient (CLI) | payer OTHER, MEDICARE, SELFPAY ==
--- NOTE | 2019-08-10 | DI.RAD.S_ITS ---
PROCEDURE: XR KNEE LT 1TO2V INDICATIONS: OTHER CLOSED FRACTURE DISTAL END OF LEFT FEMUR TECHNIQUE: 2 views of the knee were acquired. COMPARISON: [facility], CR, XR FEMUR LT MIN 2V, 02/23/2019, 5:53. [facility], CR, XR KNEE LT 3V, 02/23/2019, 5:43. [facility], CR, KNEE 1-2 VIEWS RIGHT, 08/12/2014, 17:34. FINDINGS: Bones: No previously unidentified fractures or dislocations. No suspicious bony lesions. Fracture fixation has been performed at the distal left femur where a complex comminuted fracture was documented 02/23/19. Gross anatomic alignment has been established. Soft tissues: No joint effusion. No suspicious soft tissue calcifications. IMPRESSION: Severe prior distal femur fracture, gross anatomic alignment established by ORIF between the acute trauma plain films 02/23/19 and the study today. Dictated by: John Ravi M.D. on 08/10/2019 at 13:52 Approved by: John Ravi M.D. on 08/10/2019 at 13:53
== END ==
PROVIDERS: Family Provider Internal Medicine Cardiovascular Disease; PCP Student in an Organized Health Care Education/Training Program; Referring Provider Orthopaedic Surgery; Visit Provider Orthopaedic Surgery
DX: S72.492D Other fracture of lower end of left femur, subsequent encounter for closed fracture with routine healing (principal); X58.XXXD Exposure to other specified factors, subsequent encounter
CPT/HCPCS: 73560